=== PATIENT | male | born 1970 | race Caucasian/White ===

== ENCOUNTER 2022-04-25 08:36 | Outpatient (CLI) | payer OTHER, SELFPAY ==
[2022-04-25 14:32] LABS: Chloride* 102 mmol/L (96-114)
[2022-04-25 14:33] LABS: Potassium* 4.4 mmol/L (3.6-5.1); Sodium* 136 mmol/L (135-149)
[2022-04-25 14:35] LABS: Alanine Aminotransferase* 39 U/L (4-50); Cholesterol* 137 mg/dL (90-199); Creatinine* 0.6 mg/dL (0.5-1.5); Estimated Glomerular Filt Rate 118 ml/min
[2022-04-25 14:36] LABS: Blood Urea Nitrogen* 23 mg/dL (5-24); Calcium* 9.2 mg/dL (8.4-10.6); Carbon Dioxide* 27 mmol/L (20-32); Glucose* 110 mg/dL (60-115); HDL Cholesterol* 61 mg/dL (>=40); LDL Cholesterol Calculated 58 mg/dL (<100); Triglycerides* 91 mg/dL (40-149)
== END 2022-04-25 08:37 | disposition home or self-care (01) ==
PROVIDERS: PCP Family Medicine; Visit Provider Family Medicine
DX: I10 Essential (primary) hypertension (principal); E78.5 Hyperlipidemia, unspecified; E11.9 Type 2 diabetes mellitus without complications; F41.9 Anxiety disorder, unspecified
CPT/HCPCS: 80048; 80061; 84460

== ENCOUNTER 2022-08-28 07:19 | Outpatient (CLI) | payer OTHER, SELFPAY ==
--- NOTE | 2022-08-28 08:07 | W.ANESCHARGE ---
Anesthesia Charges Start Date/Time Anesthesia Start Date: 08/28/22 Anesthesia Start Time: 08:00 Stop Date/Time Anesthesia Stop Date: 08/28/22 Anesthesia Stop Time: 08:41
--- NOTE | 2022-08-28 08:47 | W.ANESCHARGE ---
Anesthesia Charges Start Date/Time Anesthesia Start Date: 08/28/22 Anesthesia Start Time: 08:00 Stop Date/Time Anesthesia Stop Date: 08/28/22 Anesthesia Stop Time: 08:41
== END 2022-08-28 07:20 | disposition home or self-care (01) ==
LOC: OP CLINIC 07:21
PROVIDERS: PCP Family Medicine; Visit Provider Surgery
DX: Z12.11 Encounter for screening for malignant neoplasm of colon (principal); K63.5 Polyp of colon; K57.30 Diverticulosis of large intestine without perforation or abscess without bleeding; R19.5 Other fecal abnormalities
CPT/HCPCS: 45378; 812; J2704

== ENCOUNTER 2022-08-30 12:09 | Outpatient (CLI) | payer OTHER, SELFPAY ==
--- NOTE | 2022-08-30 12:47 | W.ANESCHARGE ---
Anesthesia Charges Start Date/Time Anesthesia Start Date: 08/30/22 Anesthesia Start Time: 12:40 Stop Date/Time Anesthesia Stop Date: 08/30/22 Anesthesia Stop Time: 13:30
--- NOTE | 2022-08-30 13:36 | W.ANESCHARGE ---
Anesthesia Charges Start Date/Time Anesthesia Start Date: 08/30/22 Anesthesia Start Time: 12:40 Stop Date/Time Anesthesia Stop Date: 08/30/22 Anesthesia Stop Time: 13:30
== END 2022-08-30 12:10 | disposition home or self-care (01) ==
LOC: OP CLINIC 12:11
PROVIDERS: PCP Family Medicine; Visit Provider Surgery
DX: R19.5 Other fecal abnormalities (principal); K57.30 Diverticulosis of large intestine without perforation or abscess without bleeding; K63.5 Polyp of colon
CPT/HCPCS: 45385; 811; 88305; J2704

== ENCOUNTER 2022-11-21 11:07 | Outpatient (CLI) | payer OTHER, SELFPAY | END 2022-11-21 11:08 | disposition home or self-care (01) | PROVIDERS: PCP Family Medicine; Visit Provider Family Medicine | DX: Z12.5 Encounter for screening for malignant neoplasm of prostate (principal) | CPT/HCPCS: 84153 ==

== ENCOUNTER 2023-05-08 10:28 | Outpatient (CLI) | payer OTHER, SELFPAY ==
[2023-05-08 14:18] LABS: Creatinine Urine 23.9 mg/dL
[2023-05-08 14:21] LABS: Microalbumin Creatinine Ratio 40 mg/g (0-30); Microalbumin Urine < 1 mg/dL
== END 2023-05-08 10:29 | disposition home or self-care (01) ==
PROVIDERS: PCP Family Medicine; Visit Provider Family Medicine
DX: E11.3291 Type 2 diabetes mellitus with mild nonproliferative diabetic retinopathy without macular edema, right eye (principal)
CPT/HCPCS: 80048; 80061; 82043; 82570; 84460

== ENCOUNTER 2023-12-18 09:55 | Outpatient (CLI) | payer OTHER, SELFPAY | END 2023-12-18 09:56 | disposition home or self-care (01) | PROVIDERS: PCP Family Medicine; Visit Provider Family Medicine | DX: Z12.5 Encounter for screening for malignant neoplasm of prostate (principal) | CPT/HCPCS: G0103 ==

== ENCOUNTER 2024-05-27 09:27 | Outpatient (CLI) | payer OTHER, SELFPAY | END 2024-05-27 09:28 | disposition home or self-care (01) | PROVIDERS: PCP Family Medicine; Visit Provider Family Medicine | DX: E78.2 Mixed hyperlipidemia (principal); I10 Essential (primary) hypertension | CPT/HCPCS: 80048; 80061; 84460 ==